=== PATIENT | male | born 1995 | race Caucasian/White ===

== ENCOUNTER 2017-02-09 00:51 | Emergency (ER) | payer OTHER ==
[2017-02-09 00:56] VITALS: BP 126/79; PULSE 71; RESP 16; TEMP 98.1; O2SAT 97
--- NOTE | 2017-02-09 00:59 | EDPHY ---
H & P Stated Complaint: scrath to right eye with car keys HPI/ROS: HPI CHIEF COMPLAINT: Right eye pain HISTORY OF PRESENT ILLNESS: This patient very pleasant 21-year-old male otherwise healthy no significant medical history is [employer] student, presents emergency room with eye pain to right eye. He states he was swimming his keys on a chain. And he swung the into his own right eye. He sustained trauma to his right eye. Denies any loss of vision or visual disturbance. No blurry vision but does have eye pain. He feels like there is foreign sensation of foreign body sensation. Past Medical History: No medical history except for a left eye vitreous hemorrhage or retinal detachment Past Surgical History: Surgery of the left eye Social History: [employer] student, denies illicit drugs alcohol tobacco products. Family History: Noncontributory ROS REVIEW OF SYSTEMS: A comprehensive 10 point review of systems is otherwise negative aside from elements mentioned in the history of present illness. Exam Constitutional triage nursing summary reviewed, vital signs reviewed, awake/ alert. Eyes left ankle, right eye slight conjunctival injection, also with 5 to 6:00 position on fluorescein with proparacaine there is uptake. Proparacaine given relief of pain. Horizontal linear oriented uptake consistent with corneal abrasion. Globe intact. Pupil equal round react to light. Extraocular movements intact. Soft globe. Visual acuity reviewed. HENT normal inspection, atraumatic, moist mucus membranes, no epistaxis, neck supple/ no meningismus, no raccoon eyes. Respiratory clear to auscultation bilaterally, normal breath sounds, no respiratory distress, no wheezing. Cardiovascular rate normal, regular rhythm, no murmur, no edema, distal pulses normal. Gastrointestinal soft, non-tender, no rebound, no guarding, normal bowel sounds, no distension, no pulsatile mass. Genitourinary no CVA tenderness. Musculoskeletal no midline vertebral tenderness, full range of motion, no calf swelling, no tenderness of extremities, no meningismus, good pulses, neurovascularly intact. Skin pink, warm, & dry, no rash, skin atraumatic. Neurologic awake, alert and oriented x 3, AAOx3, moves all 4 extremities equally, motor intact, sensory intact, CN II-XII intact, normal cerebellar, normal vision, normal speech. Psychiatric normal mood/affect. Heme/Lymph/Immune no lymphadenopathy. Differential Diagnosis: Includes but is not limited to in a particular order, corneal abrasion, traumatic iritis. Medical Decision Making: This patient has a corneal abrasion on exam. Patient be started on erythromycin ointment. Ibuprofen for pain control. Cool compresses. He understands not rub his eye. He needs close ophthalmology follow-up. He understands call Ophthalmology the morning for follow-up care. Source: Patient - Personal History Current Tetanus/Diphtheria Vaccine: Yes Current Tetanus Diphtheria and Acellular Pertussis (TDAP): Yes - Medical/Surgical History Hx Asthma: No Hx Chronic Respiratory Disease: No Hx Diabetes: No Hx Cardiac Disease: No Hx Renal Disease: No Hx Cirrhosis: No Hx Alcoholism: No Hx HIV/AIDS: No Hx Splenectomy or Spleen Trauma: No Other PMH: denies - Social History Smoking Status: Never smoked Constitutional: Initial Vital Signs Temperature (C) 36.7 C 02/09/17 00:54 Heart Rate 71 02/09/17 00:54 Respiratory Rate 16 02/09/17 00:54 Blood Pressure 126/79 H 02/09/17 00:54 O2 Sat (%) 97 02/09/17 00:54 O2 Delivery Mode Room Air Allergies/Adverse Reactions: cashew nut Allergy (Verified 02/09/17 00:53) Home Medications: Medication Instructions Recorded Erythromycin 0.5% 3.5 gm OP TID #1 opht.oint 02/09/17 Ibuprofen [Motrin (*)] 800 mg PO Q6-8PRN #10 tab 02/09/17 Departure - Departure Disposition: Home, Routine, Self-Care Clinical Impression: Corneal abrasion Qualifiers: Encounter type: initial encounter Laterality: left Qualified Code(s): S05.02XA - Injury of conjunctiva and corneal abrasion without foreign body, left eye, initial encounter Condition: Good Instructions: Corneal Abrasion (ED) Additional Instructions: 1. Ibuprofen or Tylenol for pain 2. Cool compresses. Do not rub your eye. 3. Call Ophthalmology tomorrow need be seen by them for follow-up care. 4. Antibiotic ointment as prescribed. 5. Return to the ER if worsening symptoms questions or concerns. Referrals: FARHAT GOMEZ [Other] - As per Instructions Liza Holcomb MD [Non Staff Provider ()] - As per Instructions Prescriptions: Erythromycin 0.5% 3.5 gm OP TID #1 opht.oint Ibuprofen [Motrin (*)] 800 mg PO Q6-8PRN #10 tab
[2017-02-09] MEDS ORDERED: FLUORESCEIN SODIUM 1 MG STRIP OP ONE (01:00)
[2017-02-09] MEDS ORDERED: PROPARACAINE 0.5% 15 ML OPHT DROP ONE (01:00)
[2017-02-09] MEDS ORDERED: ERYTHROMYCIN 0.5% 1 GM OPHT.OINT EACHEYE ONE (01:13)
== END 2017-02-09 01:36 | disposition home or self-care (01) ==
DX: S05.02XA Injury of conjunctiva and corneal abrasion without foreign body, left eye, initial encounter (principal); W22.8XXA Striking against or struck by other objects, initial encounter; Y99.8 Other external cause status